=== PATIENT | male | born 1950 | race Two or more races ===

== ENCOUNTER 2018-07-12 09:41 | Day surgery (SDC) | payer MEDICARE, MEDICAID ==
--- NOTE | 2018-07-11 15:09 | NUR ---
[facility] translation [facility] used to obtained medical history from the patient. [facility] water leak repairer Luc with ID# [id number].
[2018-07-12] VITALS (7 sets, daily range): BP systolic 112–123; BP diastolic 57–78
[~2018-07-12] VITALS: Ht 178 cm; Wt 75.0 kg
[~2018-07-12 09:41] MED LIST: Cyclopentolate 1% Opth Sol 2ml RIGHT EYE SCH; Flurbiprofen 0.03% Opth Sol 2.5ml RIGHT EYE SCH; Phenylephrine 10% Opth Soln 5ml RIGHT EYE SCH; Tropicamide 1% Opth 15ml Soln RIGHT EYE SCH; Vigamox Opth Soln 3ml RIGHT EYE SCH; magnesium PO
[2018-07-12] MEDS ORDERED: Vigamox Opth Soln 3ml ONE (09:55)
[2018-07-12] MEDS ORDERED: Phenylephrine 10% Opth Soln 5ml ONE (09:55)
[2018-07-12] MEDS ORDERED: Flurbiprofen 0.03% Opth Sol 2.5ml ONE (09:55)
[2018-07-12] MEDS ORDERED: Tropicamide 1% Opth 15ml Soln ONE (09:55)
[2018-07-12] MEDS ORDERED: Cyclopentolate 1% Opth Sol 2ml ONE (09:55)
[2018-07-12] MEDS: Tropicamide 1% Opth 15ml Soln RIGHT EYE SCH ×3 (10:13→10:33)
[2018-07-12] MEDS: Vigamox Opth Soln 3ml RIGHT EYE SCH ×2 (10:13→10:24)
[2018-07-12] MEDS: Phenylephrine 10% Opth Soln 5ml RIGHT EYE SCH ×3 (10:13→10:33)
[2018-07-12] MEDS: Cyclopentolate 1% Opth Sol 2ml RIGHT EYE SCH ×3 (10:13→10:33)
[2018-07-12] MEDS: Flurbiprofen 0.03% Opth Sol 2.5ml RIGHT EYE SCH ×2 (10:14→10:24)
[2018-07-12] MEDS ORDERED: Kenalog-40 1ml Vial ONE (10:57)
[2018-07-12] MEDS ORDERED: EPINEPHrine 1mg/1ml Amp ONE (10:57)
[2018-07-12] MEDS ORDERED: Maxitrol Opth Oint 3.5gm ONE (10:57)
[2018-07-12] MEDS ORDERED: Carbachol 0.01% Op Soln 1.5ml vial ONE (10:57)
[2018-07-12] MEDS ORDERED: Lidocaine 1% MPF 10mg/ml 5ml ONE (10:57)
[2018-07-12] MEDS ORDERED: Povidone-Iodine 5% opth solution ONE (10:58)
[2018-07-12] MEDS ORDERED: Pilocarpine 4% Opth 15ml Soln ONE (10:58)
[2018-07-12] MEDS ORDERED: BSS 15ml BTL ONE ×2 (10:58→11:36)
[2018-07-12] MEDS ORDERED: BSS 500ml btl ONE (10:58)
[2018-07-12] MEDS ORDERED: Tetracaine 0.5% Opth 4ml Soln ONE (10:59)
[2018-07-12] MEDS ORDERED: Proparacaine 0.5% Opth Soln 15ml ONE (10:59)
[2018-07-12] MEDS ORDERED: Triamcinolone 40mg/ml PF Vial ONE (10:59)
[2018-07-12] MEDS ORDERED: Healon Duet Dual Pack ONE (10:59)
--- NOTE | 2018-07-12 11:21 | Opthalmology H&P ---
Ophthalmology H&P H&P Chief Complaint: decreased vision in both eyes HPI Vision Affects Ability to: read, watch TV, drive, focus/use eyes together HPI Narrative Blurred vision interfering with daily activities Exam Visual Acuity: 20/50 both eyes Tension: normal both eyes Eye Exam: normal OU: external exam, palpebral fissure-width, marginal reflex distance, levator function, corneas; findings: anterior chambers - shallow both eyes, lens - 3+ NS cataract both eyes Assessment/Plan Treatment Plan: cataract extraction w/ lens implant Goals of Treatment: improvement of vision, enhance quality of life Attestation Attestation The risks and benefits of the surgery as well as alternative procedures were explained to the patient in detail. Suhail Barnett MD July 12, 2018 11:21
--- NOTE | 2018-07-12 11:22 | Pre-Procedure Note/Attestation ---
Pre-Procedure Note/Attestation Complete Prior to Procedure Planned Procedure: right Procedure Narrative: Cataract extraction with IOL right eye Indications for Procedure Pre-Operative Diagnosis: NS cataract right eye Attestation I attest that I discussed the nature of the procedure; its benefits; risks and complications; and alternatives (and the risks and benefits of such alternatives ), prior to the procedure, with the patient (or the patient's legal healthcare sales representative). I attest that, if there was a reasonable possibility of needing a blood transfusion, the patient (or the patient's legal healthcare sales representative) was given the [facility] standardized written summary, pursuant to the [place] Blood Safety Act ([place] Health and Safety Code # 1645, as amended). I attest that I re-evaluated the patient just prior to the surgery and that there has been no change in the patient's H&P, except as documented below: Suhail Barnett MD July 12, 2018 11:22
[2018-07-12] MEDS ORDERED: Akten 3.5% 1ml Btl ONE (11:29)
[2018-07-12] MEDS ORDERED: NS Irrig 1000ml ONE (11:30)
[2018-07-12] MEDS ORDERED: Midazolam 2mg/2ml Inj ONE (11:30)
[2018-07-12] MEDS ORDERED: Sterile Water Irrig 1000ml IRRIG ONE (11:30)
[2018-07-12] MEDS ORDERED: LR 1000ml ONE (11:30)
[2018-07-12] MEDS ORDERED: fentaNYL 100 mcg/2 mL IV ONE (11:30)
[2018-07-12] MEDS ORDERED: LR 1000ml 1,000 ML IVLG SCH (11:40)
--- NOTE | 2018-07-12 11:40 | Anethesia Preoperative Eval ---
Anesthesia Pre-op PMH/ROS General Date of Evaluation: July 12, 2018 Time of Evaluation: 11:20 Anesthesiologist: Demetrius ASA Score: ASA 2 Mallampati Score Class I : Soft palate, uvula, fauces, pillars visible Class II: Soft palate, uvula, fauces visible Class III: Soft palate, base of uvula visible Class IV: Only hard plate visible Mallampati Classification: Class II Surgeon: Ericka Diagnosis: R eye cataract Surgical Procedure: R eye cataract exraction Anesthesia History: none Family History: no anesthesia problems Allergies: Coded Allergies: No Known Allergies (Unverified , 07/11/18) Patient NPO?: Yes Past Medical History Cardiovascular: Denies: HTN, CAD, NC, valve dz, arrhythmia, other Pulmonary: Denies: asthma, COPD, MARIS[place]EL, other Gastrointestinal/Genitourinary: Reports: GERD; Denies: CRI, ESRD, other Neurologic/Psychiatric: Reports: depression/anxiety; Denies: dementia, CVA, TIA, other Endocrine: Denies: DM, hypothyroidism, steroids, other HEENT: Reports: cataract (L), cataract (R); Denies: glaucoma, [place] (L), [place] (R), other Hematology/Immune: Denies: anemia, DVT, bleeding disorder, other Musculoskeletal/Integumentary: Denies: OA, RA, DJD, DDD, edema, other PMH Narrative: as above PSxH Narrative: See H&P Anesthesia Pre-op Phys. Exam Physician Exam Last Vital Signs Date Time Temp Pulse Resp B/P (MAP) Pulse Ox O2 Delivery O2 Flow Rate FiO2 07/12/18 10:24 Room Air 07/12/18 10:20 97.8 68 18 123/78 98 Constitutional: NAD Neurologic: CN 2-12 intact Cardiovascular: RRR, no M/R/G Respiratory: CTA Gastrointestinal: S/NT/ND Airway Exam Mallampati Score: Class II MO: full ROM: full Teeth: missing Dentures: no upper, no lower Anesthesia Pre-op A/P Labs see chart Studies Pre-op Studies: EKG - NSR Risk Assessment & Plan Assessment: ASA 2 Plan: MAC Pre-Antibiotics Drug: none Jay Jay Romo MD July 12, 2018 11:40
[2018-07-12] MEDS ORDERED: fentaNYL 100 mcg/2 mL IV PRN (11:45)
--- NOTE | 2018-07-12 12:29 | Immediate Post-Op Evaluation ---
Immediate Post-Op Evalulation Immediate Post-Op Evalulation Procedure: R eye cataract extraction with IOL Date of Evaluation: July 12, 2018 Time of Evaluation: 12:28 IV Fluids: 200 Blood Products: none Estimated Blood Loss: dewayne Urinary Output: none Blood Pressure Systolic: 127 Blood Pressure Diastolic: 56 Pulse Rate: 72 Respiratory Rate: 20 O2 Sat by Pulse Oximetry: 99 Temperature (Fahrenheit): 98.6 Pain Score (1-10): 1 Nausea: No Vomiting: No Complications none Patient Status: awake, patent, none Hydration Status: adequate Jay Jay Romo MD July 12, 2018 12:29
[2018-07-12] MEDS ORDERED: acetaZOLAMIDE 500mg Sequel ORAL SCH (12:30)
--- NOTE | 2018-07-12 12:35 | Brief Operative Note ---
Immediate Post Operative Note Operative Note Pre-op Diagnosis: NS cataract right eye Procedure: cataract extraction with IOL right eye Surgeon: Suhail Barnett Retail Representative: none Anesthesia: local, MAC Specimen: none Complications: none Condition: stable Fluids: yes Estimated Blood Loss: none Drains: none Implant(s) used?: Yes - PCBOO +24.00 Suhail Barnett MD July 12, 2018 12:35
[2018-07-12] MEDS ORDERED: acetaZOLAMIDE 500mg Sequel ORAL ONE (12:39)
--- NOTE | 2018-07-12 13:33 | 48 Hour Post Anesthesia Eval ---
Post Anesthesia Evaluation Procedure: R eye cataract extraction with IOL Date of Evaluation: July 12, 2018 Time of Evaluation: 13:32 Blood Pressure Systolic: 112 0: 57 Pulse Rate: 64 Respiratory Rate: 20 Temperature (Fahrenheit): 97.6 O2 Sat by Pulse Oximetry: 98 Airway: patent Nausea: No Vomiting: No Pain Intensity: 1 Hydration Status: adequate Cardiopulmonary Status: stable Mental Status/LOC: patient returned to baseline Follow-up Care/Observations: n/a Post-Anesthesia Complications: none Follow-up care needed: ready to discharge Jay Jay Romo MD July 12, 2018 13:33
--- NOTE | 2018-07-12 20:30 | Operative Note - Dictated ---
DATE OF OPERATION: 07/12/2018 PREOPERATIVE DIAGNOSIS: Visually significant nuclear sclerotic cataract, right eye. POSTOPERATIVE DIAGNOSIS: Visually significant nuclear sclerotic cataract, right eye. PROCEDURE PERFORMED: Cataract extraction with intraocular lens implant, right eye. ANESTHESIA: Topical with intracameral MAC. COMPLICATIONS: None. PROCEDURE IN DETAIL: After explaining the risks and benefits of the procedure to the patient including the possibility of decreased or loss of vision from infection, endophthalmitis, retinal detachment, macular edema, glaucoma, corneal damage, and other causes, an informed consent was obtained. The patient was brought into the operating room and the right eye was prepped and draped in usual sterile fashion. A speculum was placed in the right eye. A side-port blade was used to make a paracentesis and about of lidocaine 1% preservative free was injected into the anterior chamber and then some viscoelastic was injected into the anterior chamber. A 2.8 mm keratome was used to make a temporal limbal incision 2.8 mm in length. There is some more viscoelastic was injected into the anterior chamber. Cystotome and Utrata forceps were used to do a continuous curvilinear capsulorrhexis and hydrodissection was done using BSS on a cannula. The phacoemulsification was done using a phaco flip technique to remove the nucleus and automated irrigation and aspiration was done to remove all the remaining cortex. At this point, it was noted that the posterior capsule was intact. Some viscoelastic was injected to inflate the capsular bag. Using lens, this lens was injected into the bag PCB00, power 24.0. A Sinskey hook was used to rotate the lens and make sure that the lens was inside of the bag and then automated irrigation and aspiration was done to remove all the viscoelastic that was injected into the anterior chamber and then the wound was hydrated using BSS on a cannula. At this point, the wound was checked for any leakage which there was none. It was watertight so no sutures were required. It was noted that the lens was well centered and the pupil was round. The speculum was removed from the right eye. A drop of pilocarpine and Vigamox were placed into the right eye. The area was closed and some Maxitrol ointment was placed to the right eye and an eye patch and eye shield were also placed and taped over the right eye. The patient tolerated the procedure well and there were no complications. He was transferred to recovery room and will be followed up in the office tomorrow morning. Suhail Barnett M.D. DR: ROMULO JOB#: [id number] CC:
== END 2018-07-12 13:20 | disposition home or self-care (01) ==
LOC: SUR 09:41
DX: H25.11 Age-related nuclear cataract, right eye (principal); K21.9 Gastro-esophageal reflux disease without esophagitis; F32.9 Major depressive disorder, single episode, unspecified; F41.9 Anxiety disorder, unspecified
CPT/HCPCS: 66984; J0171; J2250; J3010; J3370; V2632; 94003; 94150; J3300